=== PATIENT | female | born 1945 | race Caucasian/White ===

== ENCOUNTER 2023-03-28 14:53 | Inpatient (IN) | payer MEDICARE, MEDICAID ==
[2023-03-28] MEDS ORDERED: Piperacillin/Tazobactam 4.5 GM VIAL ONE (16:08)
[2023-03-28 16:09] LABS: #Basophils 0.1 thou/uL (0.0-0.2); #Eosinphils 0.4 thou/uL (0.0-0.7); #Neutrophils 8.1 thou/uL (1.40-6.50); %Basophils 0.5 % (0.0-1.0); %Eosinophils 3.5 % (0.0-10.0); %Lymphocytes 19.9 % (21.0-51.0); %Monocytes 8.2 % (0.0-10.0); %Neutrophils 67.4 % (42.0-75.0); Hematocrit 21.1 % (36.0-47.0); Hemoglobin 6.7 g/dL (12.0-16.0); Mean Corpuscular HGB CONC 31.8 g/dL (32.0-36.0); Mean Corpuscular Hemoglobin 27.7 pg (27.0-31.0); Mean Corpuscular Volume 87.2 fl (78.0-98.0); Mean Platelet Volume 10.8 fL (7.4-10.4); Platelet Count 390 10x3/uL (130-400); RBC Distribution Width 14.1 % (11.5-14.5); Red Blood Cell (RBC) Count 2.42 mill/uL (4.20-5.40)
[2023-03-28] MEDS ORDERED: Vancomycin 1.5 GRAM/300 ML BAG 1.5 GM in Premix Bag 1 BAG IVPB SCH (16:30)
[2023-03-28 16:34] LABS: ALT (SGPT) 8 U/L (8-55); AST (SGOT) 14 U/L (5-34); Albumin 3.4 g/dL (3.4-4.8); Alkaline Phosphatase 67 U/L (40-110); Anion Gap 17 mmol/L (10-20); BUN (Urea Nitrogen) 60 mg/dL (9.8-20.1); Bilirubin, Total 0.2 mg/dL (0.2-1.2); Calc. Creatinine Clearance 0 mL/min (70-130); Calcium 8.3 mg/dL (7.8-10.44); Carbon Dioxide 16 mmol/L (23-31); Chloride 105 mmol/L (98-107); Estimated GFR 13; Globulin 3.3 g/dL (2.4-3.5); Glucose 286 mg/dL (83-110); Potassium 5.1 mmol/L (3.5-5.1); Protein, Total 6.7 g/dL (5.8-8.1); Sodium 133 mmol/L (136-145)
[2023-03-28] MEDS ORDERED: Dextrose 5% in Water 1,000 ML IV PRN (17:48)
[2023-03-28] MEDS ORDERED: Ondansetron PF 4 MG/2 ML Vial IVP PRN (17:48)
[2023-03-28] MEDS ORDERED: Ondansetron ODT 4 MG TAB PO PRN (17:48)
[2023-03-28] MEDS ORDERED: Dextrose 50% Abboject 50 ML SYRINGE SLOW IVP PRN (17:48)
[2023-03-28] MEDS ORDERED: Glucagon 1 MG/ML KIT IM PRN (17:48)
[2023-03-28] MEDS ORDERED: Vancomycin Dose by Levels Sliding Scale (Wt 71-99) FS SCH (19:15)
[2023-03-28] MEDS ORDERED: Piperacillin/Tazobactam 3.375 GM in Sodium Chloride 0.9% 100 ML IVPB SCH (20:00)
[2023-03-28 20:15] VITALS: BMI 30.2
[2023-03-28] MEDS: HumaLOG 300 UNITS/3 ML VIAL SC PRN (22:36)
[2023-03-29] MEDS: Piperacillin/Tazobactam 3.375 GM in Sodium Chloride 0.9% 100 ML IVPB SCH ×2 (01:13→13:05)
[2023-03-29 02:30] LABS: Hemoglobin 6.8 g/dL (12.0-16.0)
[2023-03-29 06:33] LABS: #Basophils 0.1 thou/uL (0.0-0.2); #Eosinphils 0.5 thou/uL (0.0-0.7); #Monocytes 0.9 thou/uL (0.11-0.59); %Basophils 0.8 % (0.0-1.0); %Eosinophils 4.8 % (0.0-10.0); %Lymphocytes 17.2 % (21.0-51.0); %Monocytes 8.3 % (0.0-10.0); %Neutrophils 68.5 % (42.0-75.0); Hematocrit 23.9 % (36.0-47.0); Hemoglobin 7.4 g/dL (12.0-16.0); Mean Corpuscular Hemoglobin 27.6 pg (27.0-31.0); Mean Corpuscular Volume 89.2 fl (78.0-98.0); Mean Platelet Volume 10.4 fL (7.4-10.4); Platelet Count 357 10x3/uL (130-400); RBC Distribution Width 13.8 % (11.5-14.5); Red Blood Cell (RBC) Count 2.68 mill/uL (4.20-5.40); White Blood Cell (WBC) Count 10.2 10x3/uL (4.8-10.8)
[2023-03-29 06:57] LABS: Anion Gap 14 mmol/L (10-20); BUN (Urea Nitrogen) 53 mg/dL (9.8-20.1); Calc. Creatinine Clearance 20 mL/min (70-130); Calcium 8.4 mg/dL (7.8-10.44); Carbon Dioxide 19 mmol/L (23-31); Chloride 110 mmol/L (98-107); Estimated GFR 15; Glucose 128 mg/dL (83-110); Iron 49 ug/dL (50-170); Iron Binding Capacity, Total 186 mcg/dL (265-497); Sodium 138 mmol/L (136-145)
[2023-03-29 07:21] LABS: Ferritin 30.29 ng/mL (10-291)
[2023-03-29] MEDS ORDERED: Epoetin (ESRD) 10,000 UNITS/ML VIAL SC SCH (09:00)
[2023-03-29] MEDS ORDERED: fentaNYL 50 mcg/mL 1 mL Vial ONE (09:50)
[2023-03-29] MEDS ORDERED: Sodium Chloride 0.9% 100 ML ONE (09:53)
[2023-03-29] MEDS ORDERED: CEFAZOLIN 2 GM VIAL ONE (09:53)
[2023-03-29] MEDS ORDERED: Ondansetron PF 4 MG/2 ML Vial ONE (10:10)
[2023-03-29] MEDS ORDERED: Lidocaine 1% PF 5 ML VIAL ONE (10:10)
[2023-03-29] MEDS ORDERED: PROPOFOL 200 MG/20 ML VIAL ONE (10:10)
[2023-03-29] MEDS ORDERED: Bupivacaine PF 0.5% 30 ML VIAL ONE (10:11)
[2023-03-29] MEDS: Sodium Bicarbonate Tab 325 MG TAB PO SCH ×3 (10:46→20:30)
[2023-03-29] MEDS: Sodium Chloride 0.9% 1,000 ML IV SCH ×2 (13:05→16:48)
[2023-03-29] MEDS: Ferrous Sulfate 325 MG TAB PO SCH (16:47)
[2023-03-29] MEDS: HumaLOG 300 UNITS/3 ML VIAL SC PRN ×2 (16:51→20:29)
[2023-03-29 17:36] LABS: Vancomycin, Random 10.2 ug/mL (See Comment)
[2023-03-29] MEDS ORDERED: Vancomycin 1 GM in Premix Bag 1 BAG IVPB SCH (18:15)
[2023-03-30] MEDS: Piperacillin/Tazobactam 3.375 GM in Sodium Chloride 0.9% 100 ML IVPB SCH ×2 (00:10→12:50)
[2023-03-30] MEDS: traMADol HCl 50 MG TAB PO PRN ×2 (00:38→20:03)
[2023-03-30] MEDS: Sodium Chloride 0.9% 1,000 ML IV SCH ×2 (05:32→12:50)
[2023-03-30 06:18] LABS: #Basophils 0.1 thou/uL (0.0-0.2); #Eosinphils 0.6 thou/uL (0.0-0.7); #Neutrophils 6.2 thou/uL (1.40-6.50); %Basophils 0.7 % (0.0-1.0); %Eosinophils 5.8 % (0.0-10.0); %Lymphocytes 19.6 % (21.0-51.0); %Monocytes 10.2 % (0.0-10.0); %Neutrophils 63.4 % (42.0-75.0); Hematocrit 23.4 % (36.0-47.0); Hemoglobin 7.3 g/dL (12.0-16.0); Mean Corpuscular HGB CONC 31.2 g/dL (32.0-36.0); Mean Corpuscular Hemoglobin 27.5 pg (27.0-31.0); Mean Corpuscular Volume 88.3 fl (78.0-98.0); Mean Platelet Volume 10.2 fL (7.4-10.4); Platelet Count 360 10x3/uL (130-400); RBC Distribution Width 13.9 % (11.5-14.5); Red Blood Cell (RBC) Count 2.65 mill/uL (4.20-5.40); White Blood Cell (WBC) Count 9.7 10x3/uL (4.8-10.8)
[2023-03-30 06:39] LABS: Anion Gap 16 mmol/L (10-20); BUN (Urea Nitrogen) 38 mg/dL (9.8-20.1); Calc. Creatinine Clearance 22 mL/min (70-130); Calcium 8.5 mg/dL (7.8-10.44); Carbon Dioxide 17 mmol/L (23-31); Chloride 110 mmol/L (98-107); Estimated GFR 17; Glucose 120 mg/dL (83-110); Potassium 4.8 mmol/L (3.5-5.1); Sodium 138 mmol/L (136-145)
[2023-03-30] MEDS: Sodium Bicarbonate Tab 325 MG TAB PO SCH ×3 (08:57→20:02)
[2023-03-30] MEDS: Ferrous Sulfate 325 MG TAB PO SCH ×2 (08:57→18:18)
[2023-03-30 17:24] LABS: Vancomycin, Random 18.1 ug/mL (See Comment)
[2023-03-30] MEDS ORDERED: Vancomycin HCl 500 MG in Sodium Chloride 0.9% 100 ML IV SCH (18:00)
[2023-03-30] MEDS: HumaLOG 300 UNITS/3 ML VIAL SC PRN ×2 (18:18→21:33)
[2023-03-30] MEDS ORDERED: metroNIDAZOLE 500 MG TAB PO SCH (19:00)
[2023-03-30] MEDS: Cefepime 1 GM in Sodium Chloride 0.9% 100 ML IVPB SCH (20:03)
[2023-03-30] MEDS: metroNIDAZOLE 500 MG TAB PO SCH (23:36)
[2023-03-31] MEDS: Sodium Chloride 0.9% 1,000 ML IV SCH ×3 (02:30→20:25)
[2023-03-31] MEDS: metroNIDAZOLE 500 MG TAB PO SCH ×4 (05:50→23:57)
[2023-03-31] MEDS: HumaLOG 300 UNITS/3 ML VIAL SC PRN ×3 (05:53→21:23)
[2023-03-31 06:22] LABS: #Basophils 0.1 thou/uL (0.0-0.2); #Eosinphils 0.6 thou/uL (0.0-0.7); #Monocytes 0.9 thou/uL (0.11-0.59); #Neutrophils 5.8 thou/uL (1.40-6.50); %Eosinophils 6.1 % (0.0-10.0); %Lymphocytes 21.8 % (21.0-51.0); %Monocytes 9.6 % (0.0-10.0); %Neutrophils 61.1 % (42.0-75.0); Hematocrit 23.4 % (36.0-47.0); Hemoglobin 7.2 g/dL (12.0-16.0); Mean Corpuscular HGB CONC 30.8 g/dL (32.0-36.0); Mean Corpuscular Hemoglobin 27.1 pg (27.0-31.0); Mean Platelet Volume 10.5 fL (7.4-10.4); Platelet Count 348 10x3/uL (130-400); RBC Distribution Width 13.6 % (11.5-14.5); Red Blood Cell (RBC) Count 2.66 mill/uL (4.20-5.40); White Blood Cell (WBC) Count 9.4 10x3/uL (4.8-10.8)
[2023-03-31 06:48] LABS: Anion Gap 12 mmol/L (10-20); BUN (Urea Nitrogen) 34 mg/dL (9.8-20.1); Calc. Creatinine Clearance 20 mL/min (70-130); Calcium 8.5 mg/dL (7.8-10.44); Carbon Dioxide 18 mmol/L (23-31); Chloride 113 mmol/L (98-107); Estimated GFR 16; Glucose 158 mg/dL (83-110); Potassium 4.7 mmol/L (3.5-5.1); Sodium 138 mmol/L (136-145)
[2023-03-31] MEDS ORDERED: hydrALAZINE 20 MG/ML VIAL SLOW IVP PRN (08:24)
[2023-03-31] MEDS: Sodium Bicarbonate Tab 325 MG TAB PO SCH ×3 (08:40→20:19)
[2023-03-31] MEDS: Ferrous Sulfate 325 MG TAB PO SCH ×2 (08:40→16:05)
[2023-03-31] MEDS: Amlodipine 10 MG TAB PO SCH (08:41)
[2023-03-31] MEDS: hydrALAZINE 25 MG TAB PO SCH (08:41)
[2023-03-31] MEDS: Aspirin 81 mg Enteric Coated Tablet PO SCH (08:41)
[2023-03-31 17:16] LABS: Vancomycin, Random 13.7 ug/mL (See Comment)
[2023-03-31] MEDS ORDERED: Vancomycin HCl 750 MG in Sodium Chloride 0.9% 250 ML 250 ML IVPB SCH (17:45)
[2023-03-31] MEDS: Atorvastatin Calcium 10 MG TAB PO SCH (20:19)
[2023-03-31] MEDS: traZODone HCl 50 MG TAB PO SCH (20:19)
[2023-03-31] MEDS: Cefepime 1 GM in Sodium Chloride 0.9% 100 ML IVPB SCH (20:19)
[2023-04-01] MEDS: HumaLOG 300 UNITS/3 ML VIAL SC PRN ×4 (05:46→21:50)
[2023-04-01] MEDS: metroNIDAZOLE 500 MG TAB PO SCH ×4 (05:48→23:42)
[2023-04-01 06:24] LABS: #Basophils 0.1 thou/uL (0.0-0.2); #Eosinphils 0.5 thou/uL (0.0-0.7); #Monocytes 0.8 thou/uL (0.11-0.59); #Neutrophils 5.5 thou/uL (1.40-6.50); %Basophils 0.8 % (0.0-1.0); %Eosinophils 5.8 % (0.0-10.0); %Lymphocytes 19.5 % (21.0-51.0); %Monocytes 9.3 % (0.0-10.0); %Neutrophils 64.2 % (42.0-75.0); Hematocrit 26.4 % (36.0-47.0); Mean Corpuscular HGB CONC 30.3 g/dL (32.0-36.0); Mean Corpuscular Volume 89.2 fl (78.0-98.0); Platelet Count 353 10x3/uL (130-400); RBC Distribution Width 13.8 % (11.5-14.5); Red Blood Cell (RBC) Count 2.96 mill/uL (4.20-5.40); White Blood Cell (WBC) Count 8.6 10x3/uL (4.8-10.8)
[2023-04-01 06:47] LABS: Anion Gap 15 mmol/L (10-20); BUN (Urea Nitrogen) 35 mg/dL (9.8-20.1); Calc. Creatinine Clearance 20 mL/min (70-130); Calcium 8.7 mg/dL (7.8-10.44); Carbon Dioxide 17 mmol/L (23-31); Chloride 111 mmol/L (98-107); Estimated GFR 16; Glucose 199 mg/dL (83-110); Potassium 4.6 mmol/L (3.5-5.1); Sodium 138 mmol/L (136-145)
[2023-04-01] MEDS: Sodium Chloride 0.9% 1,000 ML IV SCH ×2 (07:31→18:07)
[2023-04-01] MEDS: Amlodipine 10 MG TAB PO SCH (08:31)
[2023-04-01] MEDS: Ferrous Sulfate 325 MG TAB PO SCH ×2 (08:31→16:05)
[2023-04-01] MEDS: Aspirin 81 mg Enteric Coated Tablet PO SCH (08:31)
[2023-04-01] MEDS: Sodium Bicarbonate Tab 325 MG TAB PO SCH ×3 (08:31→19:46)
[2023-04-01] MEDS: hydrALAZINE 25 MG TAB PO SCH (08:31)
[2023-04-01 19:31] LABS: Vancomycin, Random 16.2 ug/mL (See Comment)
[2023-04-01] MEDS: Cefepime 1 GM in Sodium Chloride 0.9% 100 ML IVPB SCH (19:42)
[2023-04-01] MEDS: Heparin 5,000 UNITS/ML VIAL SC SCH (19:45)
[2023-04-01] MEDS: Atorvastatin Calcium 10 MG TAB PO SCH (19:46)
[2023-04-01] MEDS: traZODone HCl 50 MG TAB PO SCH (19:46)
[2023-04-01] MEDS ORDERED: Vancomycin HCl 500 MG in Sodium Chloride 0.9% 100 ML IV SCH (20:00)
[2023-04-02] MEDS: Sodium Chloride 0.9% 1,000 ML IV SCH ×2 (03:37→23:02)
[2023-04-02] MEDS: Acetaminophen 325 MG TAB PO PRN ×2 (04:13→23:01)
[2023-04-02] MEDS: metroNIDAZOLE 500 MG TAB PO SCH ×3 (05:04→23:00)
[2023-04-02] MEDS: HumaLOG 300 UNITS/3 ML VIAL SC PRN ×4 (05:41→20:48)
[2023-04-02 06:00] LABS: #Basophils 0.1 thou/uL (0.0-0.2); #Eosinphils 0.5 thou/uL (0.0-0.7); #Monocytes 0.7 thou/uL (0.11-0.59); #Neutrophils 5.6 thou/uL (1.40-6.50); %Eosinophils 5.4 % (0.0-10.0); %Lymphocytes 20.9 % (21.0-51.0); %Neutrophils 64.2 % (42.0-75.0); Hematocrit 27.1 % (36.0-47.0); Hemoglobin 8.4 g/dL (12.0-16.0); Mean Corpuscular Hemoglobin 27.1 pg (27.0-31.0); Mean Corpuscular Volume 87.4 fl (78.0-98.0); Mean Platelet Volume 10.3 fL (7.4-10.4); Platelet Count 356 10x3/uL (130-400); RBC Distribution Width 13.6 % (11.5-14.5); White Blood Cell (WBC) Count 8.7 10x3/uL (4.8-10.8)
[2023-04-02 06:23] LABS: Anion Gap 14 mmol/L (10-20); BUN (Urea Nitrogen) 35 mg/dL (9.8-20.1); Calc. Creatinine Clearance 22 mL/min (70-130); Calcium 8.8 mg/dL (7.8-10.44); Carbon Dioxide 19 mmol/L (23-31); Chloride 106 mmol/L (98-107); Estimated GFR 17; Glucose 248 mg/dL (83-110); Potassium 4.3 mmol/L (3.5-5.1); Sodium 135 mmol/L (136-145)
[2023-04-02] MEDS: Sodium Bicarbonate Tab 325 MG TAB PO SCH ×3 (09:16→20:50)
[2023-04-02] MEDS: Amlodipine 10 MG TAB PO SCH (09:16)
[2023-04-02] MEDS: Ferrous Sulfate 325 MG TAB PO SCH ×2 (09:17→17:44)
[2023-04-02] MEDS: Heparin 5,000 UNITS/ML VIAL SC SCH ×2 (09:17→20:47)
[2023-04-02] MEDS: Aspirin 81 mg Enteric Coated Tablet PO SCH (09:17)
[2023-04-02] MEDS: hydrALAZINE 25 MG TAB PO SCH ×2 (09:17→20:45)
[2023-04-02 19:26] LABS: Vancomycin, Random 14.2 ug/mL (See Comment)
[2023-04-02] MEDS ORDERED: Vancomycin HCl 750 MG in Sodium Chloride 0.9% 250 ML 250 ML IVPB SCH (20:30)
[2023-04-02] MEDS: Atorvastatin Calcium 10 MG TAB PO SCH (20:45)
[2023-04-02] MEDS: Senokot 8.6 MG TAB PO SCH (20:45)
[2023-04-02] MEDS: traZODone HCl 50 MG TAB PO SCH (20:46)
[2023-04-02] MEDS: Cefepime 1 GM in Sodium Chloride 0.9% 100 ML IVPB SCH (20:47)
[2023-04-03 06:35] LABS: #Basophils 0.1 thou/uL (0.0-0.2); #Eosinphils 0.4 thou/uL (0.0-0.7); #Monocytes 0.7 thou/uL (0.11-0.59); %Basophils 0.9 % (0.0-1.0); %Eosinophils 5.5 % (0.0-10.0); %Neutrophils 63.2 % (42.0-75.0); Hematocrit 26.4 % (36.0-47.0); Hemoglobin 8.2 g/dL (12.0-16.0); Mean Corpuscular HGB CONC 31.1 g/dL (32.0-36.0); Mean Corpuscular Hemoglobin 27.2 pg (27.0-31.0); Mean Corpuscular Volume 87.7 fl (78.0-98.0); Mean Platelet Volume 10.3 fL (7.4-10.4); Platelet Count 356 10x3/uL (130-400); RBC Distribution Width 13.9 % (11.5-14.5); Red Blood Cell (RBC) Count 3.01 mill/uL (4.20-5.40); White Blood Cell (WBC) Count 7.8 10x3/uL (4.8-10.8)
[2023-04-03] MEDS: HumaLOG 300 UNITS/3 ML VIAL SC PRN ×3 (06:46→17:50)
[2023-04-03] MEDS: metroNIDAZOLE 500 MG TAB PO SCH ×5 (06:46→23:17)
[2023-04-03 06:56] LABS: Anion Gap 12 mmol/L (10-20); BUN (Urea Nitrogen) 40 mg/dL (9.8-20.1); Calc. Creatinine Clearance 19 mL/min (70-130); Calcium 8.5 mg/dL (7.8-10.44); Carbon Dioxide 20 mmol/L (23-31); Chloride 108 mmol/L (98-107); Estimated GFR 15; Glucose 289 mg/dL (83-110); Potassium 4.3 mmol/L (3.5-5.1); Sodium 136 mmol/L (136-145)
[2023-04-03] MEDS: Amlodipine 10 MG TAB PO SCH (09:02)
[2023-04-03] MEDS: hydrALAZINE 25 MG TAB PO SCH ×2 (09:02→20:07)
[2023-04-03] MEDS: Sodium Bicarbonate Tab 325 MG TAB PO SCH ×3 (09:02→20:06)
[2023-04-03] MEDS: Heparin 5,000 UNITS/ML VIAL SC SCH ×2 (09:02→20:07)
[2023-04-03] MEDS: Aspirin 81 mg Enteric Coated Tablet PO SCH (09:02)
[2023-04-03] MEDS: Ferrous Sulfate 325 MG TAB PO SCH ×2 (09:03→17:42)
[2023-04-03] MEDS: Sodium Chloride 0.9% 1,000 ML IV SCH ×3 (09:03→20:06)
[2023-04-03] MEDS: Albumin 25% 25 GM/100 ML BOT IVPB SCH ×3 (12:40→23:17)
[2023-04-03] MEDS: traZODone HCl 50 MG TAB PO SCH (20:07)
[2023-04-03] MEDS: Senokot 8.6 MG TAB PO SCH (20:07)
[2023-04-03] MEDS: Atorvastatin Calcium 10 MG TAB PO SCH (20:07)
[2023-04-03] MEDS: Cefepime 1 GM in Sodium Chloride 0.9% 100 ML IVPB SCH (20:10)
[2023-04-03 20:54] LABS: Vancomycin, Random 17.7 ug/mL (See Comment)
[2023-04-03] MEDS ORDERED: Vancomycin HCl 500 MG in Sodium Chloride 0.9% 100 ML IV SCH (21:45)
[2023-04-04] MEDS: Acetaminophen 325 MG TAB PO PRN (00:12)
[2023-04-04] MEDS: Sodium Chloride 0.9% 1,000 ML IV SCH (05:18)
[2023-04-04] MEDS: Albumin 25% 25 GM/100 ML BOT IVPB SCH (05:18)
[2023-04-04 05:43] LABS: #Basophils 0.1 thou/uL (0.0-0.2); #Eosinphils 0.4 thou/uL (0.0-0.7); #Monocytes 0.8 thou/uL (0.11-0.59); #Neutrophils 4.7 thou/uL (1.40-6.50); %Basophils 0.9 % (0.0-1.0); %Eosinophils 5.4 % (0.0-10.0); %Lymphocytes 21.9 % (21.0-51.0); %Monocytes 10.1 % (0.0-10.0); %Neutrophils 61.3 % (42.0-75.0); Hematocrit 24.4 % (36.0-47.0); Hemoglobin 7.6 g/dL (12.0-16.0); Mean Corpuscular HGB CONC 31.1 g/dL (32.0-36.0); Mean Corpuscular Hemoglobin 27.3 pg (27.0-31.0); Mean Corpuscular Volume 87.8 fl (78.0-98.0); Mean Platelet Volume 10.4 fL (7.4-10.4); Platelet Count 297 10x3/uL (130-400); RBC Distribution Width 13.9 % (11.5-14.5); Red Blood Cell (RBC) Count 2.78 mill/uL (4.20-5.40); White Blood Cell (WBC) Count 7.7 10x3/uL (4.8-10.8)
[2023-04-04 06:04] LABS: Anion Gap 12 mmol/L (10-20); BUN (Urea Nitrogen) 34 mg/dL (9.8-20.1); Calc. Creatinine Clearance 22 mL/min (70-130); Calcium 8.7 mg/dL (7.8-10.44); Carbon Dioxide 20 mmol/L (23-31); Chloride 109 mmol/L (98-107); Estimated GFR 18; Glucose 193 mg/dL (83-110); Potassium 4.2 mmol/L (3.5-5.1); Sodium 137 mmol/L (136-145)
[2023-04-04] MEDS: HumaLOG 300 UNITS/3 ML VIAL SC PRN ×2 (06:04→12:53)
[2023-04-04 07:53] VITALS: TEMP 98
[2023-04-04] MEDS: hydrALAZINE 25 MG TAB PO SCH (09:38)
[2023-04-04] MEDS: Sodium Bicarbonate Tab 325 MG TAB PO SCH (09:38)
[2023-04-04] MEDS: Aspirin 81 mg Enteric Coated Tablet PO SCH (09:39)
[2023-04-04] MEDS: Amlodipine 10 MG TAB PO SCH (09:39)
[2023-04-04] MEDS: Heparin 5,000 UNITS/ML VIAL SC SCH (09:39)
[2023-04-04] MEDS: Ferrous Sulfate 325 MG TAB PO SCH (09:39)
[2023-04-04 11:40] VITALS: BP 167/79
== END 2023-04-04 15:05 | DRG 853 ==
LOC: ERS 14:53 → SURG A 17:48 → OBSVTOIN 03-29 15:29
PROVIDERS: ADMIT Family Medicine; ATTEND Family Medicine
PROC: 30233N1 Transfusion of Nonautologous Red Blood Cells into Peripheral Vein, Percutaneous Approach (ICD-10-PCS; 2023-03-28)
PROC: 0Y6N0Z9 Detachment at Left Foot, Partial 1st Ray, Open Approach (ICD-10-PCS; principal; 2023-03-29)
PROC: 30233J1 Transfusion of Nonautologous Serum Albumin into Peripheral Vein, Percutaneous Approach (ICD-10-PCS; 2023-03-29)
PROC: 3E03329 Introduction of Other Anti-infective into Peripheral Vein, Percutaneous Approach (ICD-10-PCS; 2023-03-29)
DX: A41.9 Sepsis, unspecified organism (principal); N18.6 End stage renal disease; M86.8X7 Other osteomyelitis, ankle and foot; M00.9 Pyogenic arthritis, unspecified; E87.20 Acidosis, unspecified; D62 Acute posthemorrhagic anemia; N17.9 Acute kidney failure, unspecified; L03.116 Cellulitis of left lower limb; L97.526 Non-pressure chronic ulcer of other part of left foot with bone involvement without evidence of necrosis; E11.51 Type 2 diabetes mellitus with diabetic peripheral angiopathy without gangrene; E78.5 Hyperlipidemia, unspecified; E11.621 Type 2 diabetes mellitus with foot ulcer; Z79.82 Long term (current) use of aspirin; Z79.84 Long term (current) use of oral hypoglycemic drugs; Z90.710 Acquired absence of both cervix and uterus; Z90.49 Acquired absence of other specified parts of digestive tract; E11.22 Type 2 diabetes mellitus with diabetic chronic kidney disease; I10 Essential (primary) hypertension; D63.8 Anemia in other chronic diseases classified elsewhere; E11.69 Type 2 diabetes mellitus with other specified complication; E11.21 Type 2 diabetes mellitus with diabetic nephropathy; E11.319 Type 2 diabetes mellitus with unspecified diabetic retinopathy without macular edema
CPT/HCPCS: 36415; 36416; 36430; 80048; 80053; 80202; 82140; 82607; 82728; 83540; 83550; 83605; 85025; 85652; 86140; 86850; 86900; 86901; 87040; 88305; 88311; 96365; 96366; 96368; 96372; 96376; 97139; G0378; J0692; J1644; J1815; J2405; J2543; J2704; J3010; J3370; J3370-JW; J3490; J7050; P9016; P9047; Q4081; S0020

== ENCOUNTER 2023-05-16 12:22 | Day surgery (SDC) | payer MEDICARE ==
[2023-05-16] MEDS ORDERED: cloNIDine 0.1 MG TAB PO SCH (13:45)
[2023-05-16] MEDS ORDERED: FLU VACC QS2023(65UP)/MF59C/PF 60 MCG/0.5 ML SYRINGE IM ONE (15:45)
[2023-05-16 16:26] VITALS: BP 170/76; TEMP 98.4
== END 2023-05-16 16:37 ==
LOC: ONC/OP 12:22
PROVIDERS: ATTEND Internal Medicine Nephrology
DX: N18.5 Chronic kidney disease, stage 5 (principal)
CPT/HCPCS: 36430; 86850; 86900; 86901; 86920; 90694; G0008; P9016; 90471

== ENCOUNTER 2023-12-10 | Emergency (ER) | payer MEDICARE, OTHER ==
[2023-12-10 00:42] LABS: #Basophils 0.05 10x3/uL (0.0-0.2); %Basophils 0.5 % (0.0-1.0); %Eosinophils 3.9 % (0.0-10.0); %Lymphocytes 17.2 % (21.0-51.0); %Monocytes 9.3 % (0.0-10.0); %Neutrophils 68.7 % (42.0-75.0); Hematocrit 31.7 % (36.0-47.0); Hemoglobin 9.8 g/dL (12.0-16.0); Mean Corpuscular HGB CONC 30.9 g/dL (32.0-36.0); Mean Corpuscular Hemoglobin 28.7 pg (27.0-31.0); Mean Corpuscular Volume 92.7 fL (78.0-98.0); Mean Platelet Volume 11.3 fL (7.4-10.4); Platelet Count 217 10x3/uL (130-400); RBC Distribution Width 18.6 % (11.5-14.5); Red Blood Cell (RBC) Count 3.42 mill/uL (4.20-5.40)
[2023-12-10 00:44] LABS: Base Excess -2.7 mEq/L (-2.0 to +3.0); Calcium, Ionized (venous) 1.08 mmol/L (1.16-1.32); Chloride (VBG) 99 mmol/L (98-106); Hematocrit-VBG 31 % (36.0-47.0); Hemoglobin (Hb) 10.4 g/dL (11.7-16.1); Potassium (VBG) 4.93 mmol/L (3.70-5.30); Sodium 134 mmol/L (133-146); pH (venous) 7.384 (7.32-7.43)
[2023-12-10 01:02] LABS: ALT (SGPT) 22 U/L (8-55); AST (SGOT) 35 U/L (5-34); Albumin 3.5 g/dL (3.4-4.8); Alkaline Phosphatase 64 U/L (40-110); Anion Gap 19 mmol/L (10-20); BUN (Urea Nitrogen) 57 mg/dL (9.8-20.1); Bilirubin, Total 0.4 mg/dL (0.2-1.2); Calc. Creatinine Clearance 0 mL/min (70-130); Calcium 9.3 mg/dL (7.8-10.44); Carbon Dioxide 20 mmol/L (23-31); Chloride 100 mmol/L (98-107); Estimated GFR 8; Globulin 3.6 g/dL (2.4-3.5); Glucose 486 mg/dL (83-110); Protein, Total 7.1 g/dL (5.8-8.1); Sodium 134 mmol/L (136-145)
[2023-12-10 01:03] LABS: Troponin I 0.016 ng/mL (< 0.028)
[2023-12-10] MEDS ORDERED: Insulin Regular 300 UNITS/3 ML VIAL ONE (01:18)
== END 2023-12-10 06:00 | disposition home or self-care (01) ==
LOC: ERS
DX: E11.65 Type 2 diabetes mellitus with hyperglycemia (principal); I12.0 Hypertensive chronic kidney disease with stage 5 chronic kidney disease or end stage renal disease; E11.22 Type 2 diabetes mellitus with diabetic chronic kidney disease; N18.6 End stage renal disease; I48.91 Unspecified atrial fibrillation; Z87.891 Personal history of nicotine dependence; Z99.2 Dependence on renal dialysis; Z55.0 Illiteracy and low-level literacy
CPT/HCPCS: 36416; 80053; 82010; 82805; 84484; 85025; 93005; J1815

== ENCOUNTER 2023-12-12 18:35 | Inpatient (IN) | payer MEDICARE, MEDICAID ==
[2023-12-12 19:24] LABS: #Basophils 0.03 10x3/uL (0.0-0.2); #Eosinphils Less than 0.03 10x3/uL (0.0-0.7); %Basophils 0.3 % (0.0-1.0); %Eosinophils 0.2 % (0.0-10.0); %Lymphocytes 6.2 % (21.0-51.0); %Neutrophils 87.9 % (42.0-75.0); Hematocrit 30.6 % (36.0-47.0); Hemoglobin 9.4 g/dL (12.0-16.0); Mean Corpuscular HGB CONC 30.7 g/dL (32.0-36.0); Mean Corpuscular Hemoglobin 27.7 pg (27.0-31.0); Mean Corpuscular Volume 90.3 fL (78.0-98.0); Mean Platelet Volume 11.3 fL (7.4-10.4); Platelet Count 178 10x3/uL (130-400); RBC Distribution Width 17.9 % (11.5-14.5); Red Blood Cell (RBC) Count 3.39 mill/uL (4.20-5.40)
[2023-12-12 19:43] LABS: ALT (SGPT) 24 U/L (8-55); AST (SGOT) 35 U/L (5-34); Alkaline Phosphatase 54 U/L (40-110); Anion Gap 16 mmol/L (10-20); BUN (Urea Nitrogen) 60 mg/dL (9.8-20.1); Bilirubin, Total 0.5 mg/dL (0.2-1.2); Calc. Creatinine Clearance 0 mL/min (70-130); Calcium 8.7 mg/dL (7.8-10.44); Carbon Dioxide 22 mmol/L (23-31); Chloride 102 mmol/L (98-107); Estimated GFR 7; Globulin 3.3 g/dL (2.4-3.5); Glucose 94 mg/dL (83-110); Magnesium 2.1 mg/dL (1.6-2.6); Protein, Total 6.3 g/dL (5.8-8.1); Sodium 135 mmol/L (136-145)
[2023-12-12 20:07] LABS: Actual Bicarbonate (HCO3v) 22.2 mEq/L (22-28); Base Excess -1.8 mEq/L (-2.0 to +3.0); Chloride (VBG) 100 mmol/L (98-106); Hematocrit-VBG 30 % (36.0-47.0); Hemoglobin (Hb) 10.2 g/dL (11.7-16.1); Potassium (VBG) 4.84 mmol/L (3.70-5.30); Sodium 135 mmol/L (133-146); pH (venous) 7.422 (7.32-7.43)
[2023-12-12 20:15] LABS: Critical Call Chem Troponin I NUR.KVR@2015; Troponin I 0.789 ng/mL (< 0.028)
[2023-12-12] MEDS ORDERED: cefTRIAXone (ROCEPHIN) 1 GM VIAL ONE (23:00)
[2023-12-12] MEDS ORDERED: Sodium Chloride 0.9% 100 ML ONE (23:00)
[2023-12-13 00:20] LABS: Influenza A by NAA Not Detected (NotDetected); Influenza B by NAA Not Detected (NotDetected); SARS-CoV-2 NAA Rapid Test Not Detected (NotDetected)
[2023-12-13 01:20] LABS: Bilirubin Negative (Negative); Blood, Urine Small (Negative); Glucose, Urine (Dipstick) Negative (Negative); Ketone, Urine Negative (Negative); Leukocyte Negative (Negative); Nitrite Negative (Negative); Protein, Urine (Dipstick) > or equal to 300 mg/dL (Neg-Trace); Urobilinogen 0.2 mg/dL (Less than 2)
[2023-12-13 01:24] LABS: Bacteria/HPF 4+ HPF (None Seen); CAUTI Indications for Culture Alt mental st,lethar; Clarity Clear (Clear); RBC/HPF 0-3 HPF (0-3); Squamous Epithelial None Seen HPF (0-3)
[2023-12-13 01:28] LABS: Urine Culture Reflex Yes Yes
[2023-12-13 01:57] LABS: Critical Call Chem Troponin I NUR.KB14@0156; Troponin I 2.209 ng/mL (< 0.028)
[2023-12-13] MEDS ORDERED: Aspirin Chewable 81 MG TAB ONE (02:07)
[2023-12-13] MEDS ORDERED: Ondansetron ODT 4 MG TAB PO PRN (02:11)
[2023-12-13] MEDS ORDERED: Ondansetron PF 4 MG/2 ML Vial IVP PRN (02:11)
[2023-12-13 02:58] VITALS: BMI 30.5
[2023-12-13] MEDS ORDERED: Dextrose 50% Abboject 50 ML SYRINGE SLOW IVP PRN (03:26)
[2023-12-13] MEDS ORDERED: Glucagon 1 MG/ML KIT IM PRN (03:26)
[2023-12-13] MEDS ORDERED: Dextrose 5% in Water 1,000 ML IV PRN (03:26)
[2023-12-13 03:48] LABS: #Basophils Less than 0.03 10x3/uL (0.0-0.2); %Basophils 0.3 % (0.0-1.0); %Eosinophils 0.4 % (0.0-10.0); %Lymphocytes 12.7 % (21.0-51.0); %Monocytes 7.6 % (0.0-10.0); %Neutrophils 78.7 % (42.0-75.0); Hematocrit 28.8 % (36.0-47.0); Hemoglobin 8.7 g/dL (12.0-16.0); Mean Corpuscular HGB CONC 30.2 g/dL (32.0-36.0); Mean Corpuscular Hemoglobin 28.5 pg (27.0-31.0); Mean Corpuscular Volume 94.4 fL (78.0-98.0); Mean Platelet Volume 11.5 fL (7.4-10.4); Platelet Count 148 10x3/uL (130-400); RBC Distribution Width 17.8 % (11.5-14.5); Red Blood Cell (RBC) Count 3.05 mill/uL (4.20-5.40)
[2023-12-13 04:02] LABS: Anion Gap 18 mmol/L (10-20); BUN (Urea Nitrogen) 63 mg/dL (9.8-20.1); Calc. Creatinine Clearance 10 mL/min (70-130); Calcium 8.2 mg/dL (7.8-10.44); Carbon Dioxide 20 mmol/L (23-31); Chloride 102 mmol/L (98-107); Estimated GFR 7; Glucose 78 mg/dL (83-110); Potassium 4.3 mmol/L (3.5-5.1); Sodium 136 mmol/L (136-145)
[2023-12-13] MEDS ORDERED: Heparin 25,000 units/D5W 500 ML ONE (05:05)
[2023-12-13 05:25] LABS: Critical Call Chem Troponin I NUR.KB14 @0524
[2023-12-13 06:51] LABS: Troponin I 2.357 ng/mL (< 0.028)
[2023-12-13] MEDS: hydrALAZINE 25 MG TAB PO SCH (10:01)
[2023-12-13] MEDS: Sevelamer Carbonate 800 MG TAB PO SCH (10:07)
[2023-12-13 11:59] LABS: HBsAg Index 0.29 S/CO (0-0.99); Hep B Core Total Ab NONREACTIVE (NonReactive); Hep B Core Total Index 0.11 S/CO (0-0.79); Hep B Surf Ag NONREACTIVE S/CO (NonReactive)
[2023-12-13 12:00] LABS: Hep C IgG Ab NONREACTIVE S/CO (NonReactive); Hep C Index 0.14 S/CO (0-0.79)
[2023-12-13 13:35] LABS: HBSAB Concentration 9.09 mIU/mL; Hep B Surf AB GRAYZONE (NonReactive)
[2023-12-13] MEDS: EPOETIN ALFA-EPBX (ESRD) 10,000 UNITS/ML VIAL SC SCH (13:35)
[2023-12-13] MEDS: Atorvastatin Calcium 10 MG TAB PO SCH (13:35)
[2023-12-13] MEDS: Acetaminophen 325 MG TAB PO PRN (13:37)
[2023-12-13] MEDS: Heparin 10,000 UNITS/ 10 ML VIAL SLOW IVP SCH (13:38)
[2023-12-13] MEDS: Famotidine 20 MG TAB PO SCH ×2 (13:50→20:15)
[2023-12-13] MEDS: Famotidine/PF 20 mg/2ml Vial SLOW IVP SCH ×2 (13:50→19:57)
[2023-12-13] MEDS: FLUoxetine HCl 20 MG/5 ML UDCUP PO SCH ×2 (13:56→15:40)
[2023-12-13] MEDS: HumaLOG 300 UNITS/3 ML VIAL SC PRN (17:34)
[2023-12-13] MEDS: cefTRIAXone\\ROCEPHIN 1 GM in Sodium Chloride 0.9% 100 ML IVPB SCH (23:37)
[2023-12-14] MEDS: Heparin 25,000 units/D5W 500 ML IVPB SCH (02:50)
[2023-12-14] MEDS: HumaLOG 300 UNITS/3 ML VIAL SC PRN (21:12)
[2023-12-15 04:58] LABS: Hematocrit 30.9 % (36.0-47.0); Hemoglobin 9.4 g/dL (12.0-16.0); Mean Corpuscular HGB CONC 30.4 g/dL (32.0-36.0); Mean Corpuscular Hemoglobin 27.2 pg (27.0-31.0); Mean Corpuscular Volume 89.6 fL (78.0-98.0); Mean Platelet Volume 11.9 fL (7.4-10.4); Platelet Count 143 10x3/uL (130-400); RBC Distribution Width 17.2 % (11.5-14.5); Red Blood Cell (RBC) Count 3.45 mill/uL (4.20-5.40)
[2023-12-15 05:17] LABS: Anion Gap 18 mmol/L (10-20); BUN (Urea Nitrogen) 27 mg/dL (9.8-20.1); Calc. Creatinine Clearance 16 mL/min (70-130); Calcium 8.5 mg/dL (7.8-10.44); Carbon Dioxide 27 mmol/L (23-31); Chloride 94 mmol/L (98-107); Estimated GFR 11; Glucose 224 mg/dL (83-110); Potassium 3.7 mmol/L (3.5-5.1); Sodium 135 mmol/L (136-145)
[2023-12-15 05:30] LABS: Anisocytosis SLIGHT = 6-15 cells HPF (0-5); Band 1 % (5-11); Eosinophils 3 % (0-10); Large Platelets 7.8 % (0-5); Lymphocytes 28 % (21-51); Monocytes 15 % (0-10); Neutrophil 52 % (42-75); Platelet Adequacy Comment Platelets Normal; Polychromasia SLIGHT = 2-3 cells HPF (0-2); Smudge Cells 15.7 %
[2023-12-15] MEDS: cloNIDine 0.1 MG TAB PO SCH ×2 (10:01→20:58)
[2023-12-15] MEDS: Heparin 5,000 UNITS/ML VIAL SC SCH (20:59)
[2023-12-16] MEDS: hydrALAZINE 20 MG/ML VIAL SLOW IVP SCH (00:14)
[2023-12-16 04:48] LABS: #Basophils 0.05 10x3/uL (0.0-0.2); %Basophils 0.9 % (0.0-1.0); %Eosinophils 5.5 % (0.0-10.0); %Lymphocytes 28.4 % (21.0-51.0); %Monocytes 14.6 % (0.0-10.0); %Neutrophils 50.4 % (42.0-75.0); Hematocrit 30.9 % (36.0-47.0); Hemoglobin 9.7 g/dL (12.0-16.0); Mean Corpuscular HGB CONC 31.4 g/dL (32.0-36.0); Mean Corpuscular Volume 89.3 fL (78.0-98.0); Mean Platelet Volume 11.6 fL (7.4-10.4); Platelet Count 205 10x3/uL (130-400); RBC Distribution Width 16.9 % (11.5-14.5); Red Blood Cell (RBC) Count 3.46 mill/uL (4.20-5.40)
[2023-12-16 05:40] LABS: Anion Gap 16 mmol/L (10-20); BUN (Urea Nitrogen) 39 mg/dL (9.8-20.1); Calc. Creatinine Clearance 14 mL/min (70-130); Carbon Dioxide 25 mmol/L (23-31); Chloride 100 mmol/L (98-107); Estimated GFR 9; Glucose 267 mg/dL (83-110); Potassium 3.9 mmol/L (3.5-5.1); Sodium 137 mmol/L (136-145)
[2023-12-16] MEDS: Aspirin 81 mg Enteric Coated Tablet PO SCH (07:53)
[2023-12-16] MEDS: Amlodipine 10 MG TAB PO SCH (07:53)
[2023-12-16] MEDS: Clopidogrel Bisulfate 75 MG TAB PO SCH (07:53)
[2023-12-16 15:32] VITALS: BP 191/81; TEMP 98.4
== END 2023-12-16 19:09 | DRG 689 ==
LOC: ERS 18:35 → ERHOLD 12-13 02:40 → 2NO 12-13 07:38
PROVIDERS: ADMIT Student in an Organized Health Care Education/Training Program; ATTEND Internal Medicine
PROC: 0T9B70Z Drainage of Bladder with Drainage Device, Via Natural or Artificial Opening (ICD-10-PCS; principal; 2023-12-13)
DX: N39.0 Urinary tract infection, site not specified (principal); I21.A1 Myocardial infarction type 2; N18.6 End stage renal disease; I12.0 Hypertensive chronic kidney disease with stage 5 chronic kidney disease or end stage renal disease; Z88.1 Allergy status to other antibiotic agents; Z79.899 Other long term (current) drug therapy; Z79.82 Long term (current) use of aspirin; Z79.4 Long term (current) use of insulin; Z99.2 Dependence on renal dialysis; E11.22 Type 2 diabetes mellitus with diabetic chronic kidney disease; E11.51 Type 2 diabetes mellitus with diabetic peripheral angiopathy without gangrene; E78.5 Hyperlipidemia, unspecified; D63.1 Anemia in chronic kidney disease; Z90.49 Acquired absence of other specified parts of digestive tract; Z90.710 Acquired absence of both cervix and uterus; E11.65 Type 2 diabetes mellitus with hyperglycemia; I48.91 Unspecified atrial fibrillation; Z87.891 Personal history of nicotine dependence; Z55.0 Illiteracy and low-level literacy
CPT/HCPCS: 36415; 36416; 51701; 71045; 80048; 80053; 81001; 82010; 82805; 83605; 83735; 83880; 84484; 85025; 85730; 86704; 86706; 86803; 87040; 87077; 87086; 87340; 93005; 93010; 93306; 94760; 96365; 96366; J0360; J0696; J1644; J1815; J3490; Q5105

== ENCOUNTER 2024-02-01 19:20 | Emergency (ER) | payer MEDICARE, MEDICAID ==
[2024-02-01 20:29] LABS: #Basophils 0.05 10x3/uL (0.0-0.2); %Basophils 0.6 % (0.0-1.0); %Eosinophils 3.2 % (0.0-10.0); %Lymphocytes 19.2 % (21.0-51.0); %Neutrophils 66.7 % (42.0-75.0); Hematocrit 25.2 % (36.0-47.0); Hemoglobin 7.4 g/dL (12.0-16.0); Mean Corpuscular HGB CONC 29.4 g/dL (32.0-36.0); Mean Corpuscular Hemoglobin 25.7 pg (27.0-31.0); Mean Corpuscular Volume 87.5 fL (78.0-98.0); Platelet Count 253 10x3/uL (130-400); RBC Distribution Width 16.7 % (11.5-14.5); Red Blood Cell (RBC) Count 2.88 mill/uL (4.20-5.40)
[2024-02-01 20:42] LABS: ALT (SGPT) 15 U/L (8-55); AST (SGOT) 28 U/L (5-34); Albumin 3.4 g/dL (3.4-4.8); Alkaline Phosphatase 63 U/L (40-110); Anion Gap 20 mmol/L (10-20); BUN (Urea Nitrogen) 23 mg/dL (9.8-20.1); Bilirubin, Total 0.3 mg/dL (0.2-1.2); Calc. Creatinine Clearance 0 mL/min (70-130); Calcium 9.3 mg/dL (7.8-10.44); Carbon Dioxide 27 mmol/L (23-31); Chloride 97 mmol/L (98-107); Estimated GFR 12; Globulin 3.9 g/dL (2.4-3.5); Glucose 249 mg/dL (83-110); Potassium 4.2 mmol/L (3.5-5.1); Protein, Total 7.3 g/dL (5.8-8.1); Sodium 140 mmol/L (136-145)
[2024-02-02] MEDS ORDERED: Calcium Carbonate 500 MG ChewTAB ONE (01:07)
== END 2024-02-02 02:13 | disposition home or self-care (01) ==
LOC: ERS 19:20
DX: D64.9 Anemia, unspecified (principal); E11.22 Type 2 diabetes mellitus with diabetic chronic kidney disease; N18.6 End stage renal disease; I12.0 Hypertensive chronic kidney disease with stage 5 chronic kidney disease or end stage renal disease; E11.51 Type 2 diabetes mellitus with diabetic peripheral angiopathy without gangrene; Z99.2 Dependence on renal dialysis; Z87.891 Personal history of nicotine dependence
CPT/HCPCS: 36430; 80053; 85025; 86850; 86900; 86901; 86920; P9016; 36415; 99283

== ENCOUNTER 2024-08-20 15:44 | Emergency (ER) | payer MEDICARE, MEDICAID | END 2024-08-20 18:21 | disposition home or self-care (01) | LOC: ERS 15:44 | DX: T82.838A Hemorrhage due to vascular prosthetic devices, implants and grafts, initial encounter (principal); I12.0 Hypertensive chronic kidney disease with stage 5 chronic kidney disease or end stage renal disease; E11.22 Type 2 diabetes mellitus with diabetic chronic kidney disease; N18.6 End stage renal disease; E11.9 Type 2 diabetes mellitus without complications; I48.91 Unspecified atrial fibrillation; K21.9 Gastro-esophageal reflux disease without esophagitis; E78.5 Hyperlipidemia, unspecified; I73.9 Peripheral vascular disease, unspecified; Z99.2 Dependence on renal dialysis; Z87.891 Personal history of nicotine dependence; Z79.4 Long term (current) use of insulin; Z79.82 Long term (current) use of aspirin; Z79.899 Other long term (current) drug therapy; Z89.422 Acquired absence of other left toe(s); Z89.421 Acquired absence of other right toe(s) | CPT/HCPCS: 99284 ==

== ENCOUNTER 2025-04-04 15:50 | Emergency (ER) | payer MEDICARE, MEDICAID ==
[2025-04-04] MEDS ORDERED: Lidocaine 1% PF 5 ML VIAL ONE (16:32)
== END 2025-04-04 18:52 ==
LOC: ERS 15:50
DX: S92.512A Displaced fracture of proximal phalanx of left lesser toe(s), initial encounter for closed fracture (principal); I10 Essential (primary) hypertension; E11.9 Type 2 diabetes mellitus without complications; I48.91 Unspecified atrial fibrillation; Z87.891 Personal history of nicotine dependence; W19.XXXA Unspecified fall, initial encounter
CPT/HCPCS: 28510

== ENCOUNTER 2025-07-02 18:07 | Inpatient (IN) | payer MEDICARE, OTHER ==
[2025-07-02 20:11] LABS: #Basophils 0.05 10x3/uL (0.0-0.2); #Eosinophils 0.10 10x3/uL (0.0-0.7); #Monocytes 1.15 10x3/uL (0.11-0.59); #Neutrophils 9.29 10x3/uL (1.40-6.50); %Basophils 0.4 % (0.0-1.0); %Eosinophils 0.8 % (0.0-10.0); %Lymphocytes 12.5 % (21.0-51.0); %Monocytes 9.5 % (0.0-10.0); %Neutrophils 76.6 % (42.0-75.0); Hematocrit 38.3 % (36.0-47.0); Hemoglobin 11.9 g/dL (12.0-16.0); Mean Corpuscular Hemoglobin 28.1 pg (27.0-31.0); Mean Corpuscular Volume 90.5 fL (78.0-98.0); Platelet Count 183 10x3/uL (130-400); Red Blood Cell (RBC) Count 4.23 mill/uL (4.20-5.40); White Blood Cell (WBC) Count 12.14 10x3/uL (4.8-10.8)
[2025-07-02 20:29] LABS: ALT (SGPT) 12 U/L (Less than 34); AST (SGOT) 27 U/L (11-34); Albumin 4.1 g/dL (3.1-4.5); Alkaline Phosphatase 50 U/L (40-110); Anion Gap 23 mmol/L (10-20); BUN (Urea Nitrogen) 36 mg/dL (9.8-20.1); Bilirubin, Total 0.4 mg/dL (0.3-1.2); Calc. Creatinine Clearance 0 mL/min (70-130); Calcium 9.5 mg/dL (7.8-10.44); Carbon Dioxide 21 mmol/L (23-31); Chloride 95 mmol/L (98-107); Globulin 3.4 g/dL (2.4-3.5); Glucose 69 mg/dL (83-110); Lipase 11 U/L (8-78); Potassium 5.8 mmol/L (3.5-5.1); Sodium 133 mmol/L (136-145)
[2025-07-02] MEDS ORDERED: Sodium Bicarb 50 MEQ/50 ML Abboject 8.4% SYRINGE ONE (22:04)
[2025-07-02] MEDS ORDERED: CALCIUM GLUC 1 GM/NS 50 ML IV Bag ONE (22:04)
[2025-07-03] MEDS ORDERED: cefTRIAXone (ROCEPHIN) 2 GM VIAL ONE (04:03)
[2025-07-03] MEDS ORDERED: Calcium Carbonate 500 MG ChewTAB PO PRN (04:23)
[2025-07-03] MEDS ORDERED: Ondansetron PF 4 MG/2 ML Vial IVP PRN (04:23)
[2025-07-03] MEDS ORDERED: Glucagon 1 MG/ML KIT IM PRN (04:26)
[2025-07-03] MEDS ORDERED: Dextrose 50% Abboject 50 ML SYRINGE SLOW IVP PRN (04:26)
[2025-07-03] MEDS ORDERED: Azithromycin 500 MG VIAL ONE (04:27)
[2025-07-03] MEDS: Acetaminophen 325 MG TAB PO PRN (05:43)
[2025-07-03] MEDS: HYDROcodone/Acetaminophen 10/325 mg Tablet PO PRN (06:06)
[2025-07-03 08:29] VITALS: BMI 30.7
[2025-07-03] MEDS: cefTRIAXone\\ROCEPHIN 1 GM in Sodium Chloride 0.9% 100 ML IVPB SCH (08:32)
[2025-07-03] MEDS ORDERED: Iopamidol-370 76% 500 ML MDV (1 ML CHARGE) ONE (11:09)
[2025-07-03] MEDS: Heparin 5,000 UNITS/ML VIAL SC SCH (15:08)
[2025-07-03] MEDS: Cholecalciferol 1,000 UNITS (25 MCG) TAB PO SCH (15:09)
[2025-07-03] MEDS: Pantoprazole 40 MG DR.TAB PO SCH (15:10)
[2025-07-03] MEDS: Insulin Glargine 30 UNITS/0.3 ML VIAL SC SCH (15:12)
[2025-07-03] MEDS: Gabapentin 100 MG CAP PO SCH (15:14)
[2025-07-03] MEDS: EPOETIN ALFA-EPBX (ESRD) 10,000 UNITS/ML VIAL SC SCH (16:38)
[2025-07-03] MEDS: Methocarbamol 500 MG TAB PO PRN (17:41)
[2025-07-03] MEDS: Transdermal Patch Removal LIDOCAINE TOP SCH (23:12)
[2025-07-04 03:10] LABS: #Basophils 0.06 10x3/uL (0.0-0.2); #Eosinophils 0.20 10x3/uL (0.0-0.7); #Monocytes 1.04 10x3/uL (0.11-0.59); #Neutrophils 7.15 10x3/uL (1.40-6.50); %Basophils 0.6 % (0.0-1.0); %Eosinophils 2.0 % (0.0-10.0); %Lymphocytes 13.5 % (21.0-51.0); %Monocytes 10.6 % (0.0-10.0); %Neutrophils 73.0 % (42.0-75.0); Hematocrit 40.3 % (36.0-47.0); Hemoglobin 11.9 g/dL (12.0-16.0); Mean Corpuscular Hemoglobin 27.3 pg (27.0-31.0); Mean Corpuscular Volume 92.4 fL (78.0-98.0); Platelet Count 192 10x3/uL (130-400); Red Blood Cell (RBC) Count 4.36 mill/uL (4.20-5.40); White Blood Cell (WBC) Count 9.80 10x3/uL (4.8-10.8)
[2025-07-04 04:20] LABS: ALT (SGPT) 10 U/L (Less than 34); AST (SGOT) 33 U/L (11-34); Albumin 3.8 g/dL (3.1-4.5); Alkaline Phosphatase 50 U/L (40-110); Anion Gap 21 mmol/L (10-20); BUN (Urea Nitrogen) 28 mg/dL (9.8-20.1); Bilirubin, Total 0.3 mg/dL (0.3-1.2); Calc. Creatinine Clearance 11 mL/min (70-130); Calcium 9.5 mg/dL (7.8-10.44); Carbon Dioxide 28 mmol/L (23-31); Chloride 92 mmol/L (98-107); Globulin 3.8 g/dL (2.4-3.5); Glucose 150 mg/dL (83-110); Potassium 4.6 mmol/L (3.5-5.1); Sodium 136 mmol/L (136-145)
[2025-07-04 04:25] LABS: Magnesium 2.3 mg/dL (1.6-2.6)
[2025-07-05 05:41] LABS: #Basophils 0.06 10x3/uL (0.0-0.2); #Eosinophils 0.31 10x3/uL (0.0-0.7); #Monocytes 1.32 10x3/uL (0.11-0.59); #Neutrophils 8.62 10x3/uL (1.40-6.50); %Basophils 0.5 % (0.0-1.0); %Eosinophils 2.6 % (0.0-10.0); %Lymphocytes 14.5 % (21.0-51.0); %Monocytes 10.9 % (0.0-10.0); %Neutrophils 71.2 % (42.0-75.0); Hematocrit 39.5 % (36.0-47.0); Hemoglobin 12.1 g/dL (12.0-16.0); Mean Corpuscular Hemoglobin 28.3 pg (27.0-31.0); Mean Corpuscular Volume 92.5 fL (78.0-98.0); Platelet Count 216 10x3/uL (130-400); Red Blood Cell (RBC) Count 4.27 mill/uL (4.20-5.40); White Blood Cell (WBC) Count 12.10 10x3/uL (4.8-10.8)
[2025-07-05 05:51] LABS: Magnesium 2.4 mg/dL (1.6-2.6)
[2025-07-05 05:55] LABS: Anion Gap 24 mmol/L (10-20); BUN (Urea Nitrogen) 51 mg/dL (9.8-20.1); Calc. Creatinine Clearance 8 mL/min (70-130); Calcium 9.4 mg/dL (7.8-10.44); Carbon Dioxide 24 mmol/L (23-31); Chloride 94 mmol/L (98-107); Glucose 72 mg/dL (83-110); Potassium 4.7 mmol/L (3.5-5.1); Sodium 137 mmol/L (136-145)
[2025-07-05] MEDS: cloNIDine 0.1 MG TAB PO SCH (15:28)
[2025-07-06 06:23] LABS: #Basophils 0.07 10x3/uL (0.0-0.2); #Eosinophils 0.39 10x3/uL (0.0-0.7); #Monocytes 1.15 10x3/uL (0.11-0.59); #Neutrophils 8.52 10x3/uL (1.40-6.50); %Basophils 0.6 % (0.0-1.0); %Eosinophils 3.3 % (0.0-10.0); %Lymphocytes 13.3 % (21.0-51.0); %Monocytes 9.8 % (0.0-10.0); %Neutrophils 72.7 % (42.0-75.0); Hematocrit 38.9 % (36.0-47.0); Hemoglobin 11.7 g/dL (12.0-16.0); Mean Corpuscular Hemoglobin 27.8 pg (27.0-31.0); Mean Corpuscular Volume 92.4 fL (78.0-98.0); Platelet Count 236 10x3/uL (130-400); Red Blood Cell (RBC) Count 4.21 mill/uL (4.20-5.40); White Blood Cell (WBC) Count 11.73 10x3/uL (4.8-10.8)
[2025-07-06 06:40] LABS: Anion Gap 25 mmol/L (10-20); BUN (Urea Nitrogen) 74 mg/dL (9.8-20.1); Calc. Creatinine Clearance 6 mL/min (70-130); Calcium 9.2 mg/dL (7.8-10.44); Carbon Dioxide 24 mmol/L (23-31); Chloride 93 mmol/L (98-107); Glucose 60 mg/dL (83-110); Potassium 4.7 mmol/L (3.5-5.1); Sodium 137 mmol/L (136-145)
[2025-07-06] MEDS: Aspirin 81 mg Enteric Coated Tablet PO SCH (12:51)
[2025-07-06] MEDS: Pregabalin 25 MG CAP PO SCH (13:00)
[2025-07-06] MEDS: PNEUMOC 20-VAL CONJ-DIP CRM/PF 0.5 ML SYRINGE IM ONE (18:21)
[2025-07-07 04:50] LABS: #Basophils 0.07 10x3/uL (0.0-0.2); #Eosinophils 0.42 10x3/uL (0.0-0.7); #Monocytes 1.39 10x3/uL (0.11-0.59); #Neutrophils 7.82 10x3/uL (1.40-6.50); %Basophils 0.6 % (0.0-1.0); %Eosinophils 3.6 % (0.0-10.0); %Lymphocytes 16.1 % (21.0-51.0); %Monocytes 12.0 % (0.0-10.0); %Neutrophils 67.5 % (42.0-75.0); Hematocrit 36.2 % (36.0-47.0); Hemoglobin 10.8 g/dL (12.0-16.0); Mean Corpuscular Hemoglobin 27.4 pg (27.0-31.0); Mean Corpuscular Volume 91.9 fL (78.0-98.0); Platelet Count 213 10x3/uL (130-400); Red Blood Cell (RBC) Count 3.94 mill/uL (4.20-5.40); White Blood Cell (WBC) Count 11.58 10x3/uL (4.8-10.8)
[2025-07-07 04:59] LABS: Anion Gap 19 mmol/L (10-20); BUN (Urea Nitrogen) 48 mg/dL (9.8-20.1); Calc. Creatinine Clearance 9 mL/min (70-130); Calcium 9.1 mg/dL (7.8-10.44); Carbon Dioxide 27 mmol/L (23-31); Chloride 94 mmol/L (98-107); Glucose 87 mg/dL (83-110); Potassium 4.6 mmol/L (3.5-5.1); Sodium 135 mmol/L (136-145)
[2025-07-08 04:30] LABS: #Basophils 0.08 10x3/uL (0.0-0.2); #Eosinophils 0.57 10x3/uL (0.0-0.7); #Monocytes 1.49 10x3/uL (0.11-0.59); #Neutrophils 8.85 10x3/uL (1.40-6.50); %Basophils 0.6 % (0.0-1.0); %Eosinophils 4.4 % (0.0-10.0); %Lymphocytes 15.0 % (21.0-51.0); %Monocytes 11.5 % (0.0-10.0); %Neutrophils 68.0 % (42.0-75.0); Hematocrit 34.8 % (36.0-47.0); Hemoglobin 10.5 g/dL (12.0-16.0); Mean Corpuscular Hemoglobin 28.0 pg (27.0-31.0); Mean Corpuscular Volume 92.8 fL (78.0-98.0); Platelet Count 236 10x3/uL (130-400); Red Blood Cell (RBC) Count 3.75 mill/uL (4.20-5.40); White Blood Cell (WBC) Count 13.00 10x3/uL (4.8-10.8)
[2025-07-08 04:41] LABS: Anion Gap 21 mmol/L (10-20); BUN (Urea Nitrogen) 81 mg/dL (9.8-20.1); Calc. Creatinine Clearance 7 mL/min (70-130); Calcium 9.0 mg/dL (7.8-10.44); Carbon Dioxide 23 mmol/L (23-31); Chloride 93 mmol/L (98-107); Glucose 55 mg/dL (83-110); Potassium 4.6 mmol/L (3.5-5.1); Sodium 132 mmol/L (136-145)
[2025-07-09 05:12] LABS: #Basophils 0.08 10x3/uL (0.0-0.2); #Eosinophils 0.50 10x3/uL (0.0-0.7); #Monocytes 1.43 10x3/uL (0.11-0.59); #Neutrophils 8.25 10x3/uL (1.40-6.50); %Basophils 0.7 % (0.0-1.0); %Eosinophils 4.1 % (0.0-10.0); %Lymphocytes 15.2 % (21.0-51.0); %Monocytes 11.8 % (0.0-10.0); %Neutrophils 67.9 % (42.0-75.0); Hematocrit 36.5 % (36.0-47.0); Hemoglobin 11.0 g/dL (12.0-16.0); Mean Corpuscular Hemoglobin 28.1 pg (27.0-31.0); Mean Corpuscular Volume 93.4 fL (78.0-98.0); Platelet Count 233 10x3/uL (130-400); Red Blood Cell (RBC) Count 3.91 mill/uL (4.20-5.40); White Blood Cell (WBC) Count 12.14 10x3/uL (4.8-10.8)
[2025-07-09 05:22] LABS: Anion Gap 17 mmol/L (10-20); BUN (Urea Nitrogen) 54 mg/dL (9.8-20.1); Calc. Creatinine Clearance 10 mL/min (70-130); Calcium 9.2 mg/dL (7.8-10.44); Carbon Dioxide 27 mmol/L (23-31); Chloride 92 mmol/L (98-107); Glucose 115 mg/dL (83-110); Potassium 4.3 mmol/L (3.5-5.1); Sodium 132 mmol/L (136-145)
[2025-07-09 20:47] VITALS: BMI 30.7
[2025-07-10 04:55] LABS: #Basophils 0.09 10x3/uL (0.0-0.2); #Eosinophils 0.63 10x3/uL (0.0-0.7); #Monocytes 1.43 10x3/uL (0.11-0.59); #Neutrophils 8.60 10x3/uL (1.40-6.50); %Basophils 0.7 % (0.0-1.0); %Eosinophils 5.0 % (0.0-10.0); %Lymphocytes 13.6 % (21.0-51.0); %Monocytes 11.4 % (0.0-10.0); %Neutrophils 69.0 % (42.0-75.0); Hematocrit 36.0 % (36.0-47.0); Hemoglobin 11.2 g/dL (12.0-16.0); Mean Corpuscular Hemoglobin 28.4 pg (27.0-31.0); Mean Corpuscular Volume 91.4 fL (78.0-98.0); Platelet Count 249 10x3/uL (130-400); Red Blood Cell (RBC) Count 3.94 mill/uL (4.20-5.40); White Blood Cell (WBC) Count 12.49 10x3/uL (4.8-10.8)
[2025-07-10 05:20] LABS: Anion Gap 22 mmol/L (10-20); BUN (Urea Nitrogen) 81 mg/dL (9.8-20.1); Calc. Creatinine Clearance 7 mL/min (70-130); Calcium 9.1 mg/dL (7.8-10.44); Carbon Dioxide 25 mmol/L (23-31); Chloride 88 mmol/L (98-107); Glucose 92 mg/dL (83-110); Potassium 4.5 mmol/L (3.5-5.1); Sodium 130 mmol/L (136-145)
[2025-07-10] MEDS: Benzonatate 100 MG CAP PO PRN (20:39)
[2025-07-11 15:34] VITALS: BP 131/65; TEMP 97.7
== END 2025-07-11 18:55 | DRG 542 ==
LOC: ERS 18:07 → 2NO 07-03 04:22
PROVIDERS: ADMIT Student in an Organized Health Care Education/Training Program; ATTEND Internal Medicine
PROC: 5A1D70Z Performance of Urinary Filtration, Intermittent, Less than 6 Hours Per Day (ICD-10-PCS; principal; 2025-07-03)
PROC: 3E03329 Introduction of Other Anti-infective into Peripheral Vein, Percutaneous Approach (ICD-10-PCS; 2025-07-11)
DX: M84.68XA Pathological fracture in other disease, other site, initial encounter for fracture (principal); J18.9 Pneumonia, unspecified organism; N18.6 End stage renal disease; J90 Pleural effusion, not elsewhere classified; J93.9 Pneumothorax, unspecified; I12.0 Hypertensive chronic kidney disease with stage 5 chronic kidney disease or end stage renal disease; I48.91 Unspecified atrial fibrillation; E11.22 Type 2 diabetes mellitus with diabetic chronic kidney disease; E87.5 Hyperkalemia; E11.21 Type 2 diabetes mellitus with diabetic nephropathy; Z99.2 Dependence on renal dialysis; D63.1 Anemia in chronic kidney disease; E83.39 Other disorders of phosphorus metabolism; K21.9 Gastro-esophageal reflux disease without esophagitis; Z88.2 Allergy status to sulfonamides; Z90.710 Acquired absence of both cervix and uterus; Z90.49 Acquired absence of other specified parts of digestive tract; Z89.429 Acquired absence of other toe(s), unspecified side; Z98.890 Other specified postprocedural states; Z98.42 Cataract extraction status, left eye; Z98.41 Cataract extraction status, right eye
CPT/HCPCS: 36415; 36416; 71045; 71250; 71275; 74177; 80048; 80053; 83605; 83690; 83735; 83880; 84100; 84484; 85025; 87040; 90935; 93005; 96365; 96367; 96375; G0257; J0456; J0613; J0696; J1644; J1815; J2270; J3010; Q5105; Q9967